=== PATIENT | female | born 1960 | race American Indian/Alaskan Native ===

== ENCOUNTER 2016-12-10 12:05 | Inpatient (IN) | payer SELFPAY ==
[2016-12-10 12:53] LABS: Basophils % (Auto) 1.1 % (0.0-1.8); Eosinophils % (Auto) 0.4 % (0.0-4.3); Mean Corpuscular HGB Conc 33 % (30-34); Mean Corpuscular Hemoglobin 27 pg (28-32); Mean Corpuscular Volume 84 fl (79-97); Platelet Count 267 K/mm3 (140-440); Red Blood Count 4.41 M/mm3 (3.65-5.03); Red Cell Distribution Width 14.9 % (13.2-15.2); White Blood Count 5.4 K/mm3 (4.5-11.0)
[2016-12-10 13:11] LABS: Anion Gap 19 mmol/L; Blood Urea Nitrogen 18 mg/dL (7-17); Calcium 9.2 mg/dL (8.4-10.2); Carbon Dioxide 20 mmol/L (22-30); Chloride 103.2 mmol/L (98-107); Glucose 97 mg/dL (65-100); Potassium 4.1 mmol/L (3.6-5.0); Sodium 138 mmol/L (137-145)
[2016-12-10] MEDS ORDERED: NITRO-BID 2% TP ONE (16:28)
[2016-12-10] MEDS ORDERED: ZOFRAN IV ONE (16:28)
[2016-12-10] MEDS ORDERED: MORPHINE IV ONE (16:28)
--- NOTE | 2016-12-10 16:44 | Emergency Department Report ---
HPI - General Chief Complaint: Chest Pain Time Seen by Provider: 12/10/16 16:21 - HPI HPI: Room 25 The patient is a 56-year-old female presenting with a chief complaint of chest pain. Patient states for the past 2 days she has had pain across her back radiating to her chest described as a pressure. The patient states he feels "like someone is sitting on my chest." Patient denies shortness of breath, nausea/vomiting or diaphoresis. The patient currently gives her chest pressure a score of 3/10. Patient states her last stress test occurred approximately 5 years ago but she has never had a cardiac catheterization Location: Chest Duration: Intermittent 2 days Quality: "Like someone is sitting normal chest" Severity: 3/10 Modifying factors: [see above] Context: [see above] Mode of transportation: [not driving] ED Past Medical Hx - Past Medical History Hx Hypertension: Yes Additional medical history: Cerebral Aneurysm 2012 - Surgical History Past Surgical History?: No Additional Surgical History: Aneurysm repair, Hysterectomy, Carpal Tunnel repair - Family History Family history: no significant - Social History Smoking Status: Current Every Day Smoker (1/14 pack per day) Substance Use Type: None - Medications Home Medications: Home Medications Medication Instructions Recorded Confirmed Last Taken Type No Known Home Medications [No 08/05/16 08/05/16 Unknown History Reported Home Medications] ED Review of Systems ROS: Stated complaint: R SHOULDER ACROSS BACK/CHEST PAIN Other details as noted in HPI Comment: All other systems reviewed and negative Constitutional: denies: chills, fever Eyes: denies: eye pain, eye discharge, vision change ENT: denies: ear pain, throat pain Respiratory: denies: cough, shortness of breath, wheezing Cardiovascular: chest pain Endocrine: no symptoms reported Gastrointestinal: denies: abdominal pain, nausea, diarrhea Genitourinary: denies: urgency, dysuria, discharge Musculoskeletal: back pain. denies: joint swelling, arthralgia Skin: denies: rash, lesions Neurological: denies: headache, weakness, paresthesias Psychiatric: denies: anxiety, depression Hematological/Lymphatic: denies: easy bleeding, easy bruising Physical Exam - Physical Exam Vital Signs: Vital Signs 12/10/16 12/10/16 12/10/16 12:22 15:11 15:12 Temperature 98.6 F Pulse Rate 68 71 Respiratory 18 20 Rate Blood Pressure 142/89 140/70 O2 Sat by Pulse 100 90 92 Oximetry 12/10/16 12/10/16 12/10/16 15:13 15:14 15:22 Temperature Pulse Rate 61 60 Respiratory 15 15 15 Rate Blood Pressure 140/70 140/70 O2 Sat by Pulse 93 99 99 Oximetry Physical Exam: GENERAL: The patient is well-developed well-nourished female lying on stretcher appearing to be in mild discomfort. [] HEENT: Normocephalic. Atraumatic. Extraocular motions are intact. Patient has moist mucous membranes. NECK: Supple. Trachea midline CHEST/LUNGS: Clear to auscultation. There is no respiratory distress noted. HEART/CARDIOVASCULAR: Regular. There is no tachycardia. There is no gallop rub or murmur. ABDOMEN: Abdomen is soft, nontender. Patient has normal bowel sounds. There is no abdominal distention. SKIN: There is no rash. There is no edema. There is no diaphoresis. NEURO: The patient is awake, alert, and oriented. The patient is cooperative. The patient has normal speech MUSCULOSKELETAL: There is no evidence of acute injury. ED Course Vital Signs 12/10/16 12/10/16 12/10/16 12:22 15:11 15:12 Temperature 98.6 F Pulse Rate 68 71 Respiratory 18 20 Rate Blood Pressure 142/89 140/70 O2 Sat by Pulse 100 90 92 Oximetry 12/10/16 12/10/16 12/10/16 15:13 15:14 15:22 Temperature Pulse Rate 61 60 Respiratory 15 15 15 Rate Blood Pressure 140/70 140/70 O2 Sat by Pulse 93 99 99 Oximetry ED Medical Decision Making - Lab Data Result diagrams: 12/10/16 12:35 12/10/16 12:35 Laboratory Tests 12/10/16 12/10/16 12/10/16 12:35 12:35 14:50 WBC 5.4 RBC 4.41 Hgb 12.0 Hct 37.0 MCV 84 MCH 27 L MCHC 33 RDW 14.9 Plt Count 267 Lymph % (Auto) 41.8 H [place] % (Auto) 10.4 H Eos % (Auto) 0.4 Baso % (Auto) 1.1 Lymph # 2.3 [place] # 0.6 Eos # 0.0 Baso # 0.1 Seg Neutrophils % 46.3 Seg Neutrophils # 2.5 Sodium 138 Potassium 4.1 Chloride 103.2 Carbon Dioxide 20 L Anion Gap 19 BUN 18 H Creatinine 0.9 Estimated GFR > 60 BUN/Creatinine Ratio 20.00 Glucose 97 Calcium 9.2 Troponin T < 0.010 < 0.010 - EKG Data -: EKG Interpreted by Me EKG shows normal: sinus rhythm Rate: normal - EKG Data When compared to previous EKG there are: previous EKG unavailable Interpretation: normal EKG - Radiology Data Radiology results: image reviewed (chest x-ray) interpreted by me: Chest x-ray- no focal infiltrates, no pneumothorax - Differential Diagnosis ACS, CHF, pneumothorax, pneumonia Critical care attestation.: If time is entered above; I have spent that time in minutes in the direct care of this critically ill patient, excluding procedure time. ED Disposition Clinical Impression: Chest pain Disposition: OP ADMITTED IP TO THIS HOSP Is pt being admited?: Yes Does the pt Need Aspirin: Yes Condition: Fair Instructions: Chest Pain (ED) Referrals: PRIMARY CARE, [Primary Care Provider] - 3-5 Days Time of Disposition: 16:46 (hospitalist notified)
[2016-12-10] MEDS ORDERED: ASPIRIN PO ONE (16:47)
--- NOTE | 2016-12-10 16:58 | Admit Criteria Form ---
Admission Criteria Documentation: CARDIOLOGY GRG Clinical Indications for Admission to Inpatient Care ( Place 'X' for any and all applicable criteria): Hospital admission is needed for appropriate care of the patient because of ANY ONE of the following (1): [ ] I. Hemodynamic instability as indicated by ALL of the following (1)(2)(3) (4)(5) [ ]a) Vital signs or other findings not as expected for chronic patient condition or baseline [ ]b) Instability indicated by ANY ONE of the following: [ ]i) Hypotension [ ]ii) Symptomatic Tachycardia unresponsive to treatment ( e.g., analgesia, fluids, sedation as indicated) [ ]iii) Inadequate perfusion indicated by ANY ONE of the following: [ ] 1) Lactic acidosis (> 2 mmol/L) [ ] 2) New abnormal capillary refill (> 3 seconds) [ ] 3) Reduced urine output [ ] 4) New altered mental status [ ]iv) Orthostatic vital sign changes unresponsive to treatment (e.g., fluids) [ ]v) IV inotropic or vasopressor medication required to maintain adequate blood pressure or perfusion [ ] II. Severe heart failure as indicated by ANY ONE of the following(17)(18) [ ]a) Respiratory distress [ ]b) Hypotension [ ]c) Anasarca (refractory to outpatient therapy) [ ]d) Cardiac arrhythmias of immediate concern [ ]e) Myocardial ischemia [ ] III. Cardiac arrhythmias or findings of immediate concern indicated by ANY ONE of the following (19)(20): [ ] a) Heart rhythms that are inherently dangerous or unstable indicated by ANY ONE of the following (21)(22)(23): [ ] i) Resuscitated ventricular fibrillation or cardiac arrest [ ] ii) Ventricular escape rhythm [ ] iii) Sustained ventricular tachycardia (30 seconds or more of ventricular rhythm at greater than 100 beats per minute) [ ] iv) Nonsustained ventricular tachycardia and ANY ONE of the following: [ ] 1) Suspected cardiac ischemia as cause or consequence of ventricular tachycardia [ ] 2) In setting of acute myocarditis [ ] b) Unstable cardiac conduction defects indicated by ANY ONE of the following(23)(24)(25) [ ] i) Type II second-degree atrioventricular block [ ]ii) Third-degree atrioventricular block [ ]iii) New-onset left bundle branch block with suspected myocardial ischemia [ ]c) Any heart rhythm and ANY ONE of the following (21)(22)(26)(27) (28) [ ] i) Continuous long-term ECG monitoring needed (e.g., initiation of drug requiring monitoring for more than 24 hours) [ ] ii) Patient has automatic implanted cardioverter defibrillator that is repeatedly firing, malfunctioning, or in need of immediate adjustment of settings beyond the scope of ambulatory or observation care [ ]d) Heart rhythms of concern due to ANY ONE of the following: [ ] i) Hypotension [ ] ii) Respiratory distress [ ] iii) Association with other significant symptoms (e.g., bradycardia with syncope or ongoing dizziness, supraventricular tachycardia with chest pain (14)(15)(17) [ ] IV. Monitoring for cardiac contusion beyond the scope of observation care needed [A](30)(31)(32) [ ] V. Surgical or device complication (e.g., valve replacement complication , pacemaker dysfunction) (35)(41)(44)(45)(46) [ ] . Inpatient palliative care needed. [B](49) Also use Inpatient Palliative Care Criteria [ ] VII. Nonbacterial thrombotic (marantic) endocarditis (36)(43)(47)(48) [X] VIII. Cardiology condition, symptom, or finding for which emergency and observation care has failed or are not considered appropriate. [ ] IX. Acute valvular disease requiring inpatient as indicated by ANY ONE of the following (41) [ ]a) Acute valvular regurgitation (42) [ ]b) Noninfectious valvulitis (43) [ ]c) Obstructive valve thrombosis [ ]d) Paravalvular leak [ ]e) Other significant valvular disorder remaining after emergency or observation level of care (as appropriate) [ ]X. Pericardial disease requiring inpatient treatment as indicated by ANY ONE of the following (33)(34)(35)(36)(37) [ ]a) Suspected tamponade (38)(39)(40) [ ]b) Hemopericardium [ ]c) Other significant pericardial disorder remaining after emergency or observation level of care (as appropriate) [ ] XI. Cardiac ischemia beyond scope of emergency and observation care. [ ] XII. Hypertension requiring inpatient treatment as indicated by ANY ONE of the following (6)(7)(8) [ ]a) SBP greater than 220 mm Hg or DBP greater than 120 mmHg despite treatment [ ]b) SBP greater than 140 mm Hg or DBP greater than 100 mm Hg with evidence of acute end organ damage as indicated by ANY ONE of the following [ ] i) Altered mental status [ ] ii) Acute renal failure as indicated by new onset of ANY ONE of the following (9)(10)(11)(12)(13) [ ]1) 3-fold rise in serum creatinine from baseline [ ]2) Serum creatinine greater than 4 mg/dL ( 354 micromoles/L) with acute rise greater than 0.5 mg/dL (44.2 micromoles/L) [ ]3) Reduction of more than 75% in estimated glomerular filtration rate from baseline [ ]4) Estimated glomerular filtration rate less than 35 mL/min/1.73m2 (0.59 mL/sec/1.73m2) in child up to 18 years of age [ ]5) Cessation of urine output indicated by ALL of the following [ ]A. Adequate volume status [ ]B. Inadequate urine output as indicated by ANY ONE of the following [ ]a. Urine output less than 0.3 mL/kg/hr for 24 hours [ ]b. Anuria (urine output less than 0.1 mL/kg/hr) for 12 hours [ ] iii) Aortic dissection [ ] iv) Myocardial Ischemia [ ] v) Left ventricular heart failure [ ]vi) Retinal Hemorrhage [ ]vii) Other significant finding [ ]c) Hypertension in child requiring inpatient treatment as indicated by ALL of the following(14)(15)(16) [ ] i) Outpatient treatment not effective, not available, or not appropriate [ ]ii) SBP or DBP greater than 95th percentile for age [ ]iii) Evidence of acute end organ damage as indicated by ANY ONE of the following [ ]1) Altered mental status [ ]2) Acute renal failure as indicated by new onset of ANY ONE of the following(9)(10)(11)(12)(13) [ ]A. 3-fold rise in serum creatinine from baseline [ ]B. Serum creatinine greater than 4 mg/dL (354 micromoles/L) with acute rise greater than 0.5 mg/dL (44.2 micromoles/L) [ ]C. Reduction of more than 75% in estimated glomerular filtration rate from baseline [ ]D. Estimated glomerular filtration rate less than 35 mL/min/1.73m2 (0.59 mL/sec/1.73m2) in child up to 18 years of age [ ]E. Cessation of urine output indicated by ALL of the following [ ]a. Adequate volume status [ ]b. Inadequate urine output as indicated by ANY ONE of the following [ ]i) Urine output less than 0.3 mL/kg/hr for 24 hours [ ]ii) Anuria ( urine output less than 0.1 mL/kg/hr) for 12 hours [ ]3) Severe headache [ ]4) Visual disturbance [ ]5) Retinal hemorrhage [ ]6) Other significant finding [ ]XIII. Complications of transplanted heart indicated by ANY ONE of the following(61): [ ]a) Acute graft rejection requiring inpatient management (eg, intravenous immunosuppression)(62)(63) [ ]b) Acute graft heart failure indicated by ANY ONE of the following(64): [ ]i) Hemodynamic instability [ ]ii) Cardiac arrhythmias of immediate concern [ ]iii) Pulmonary edema that is very severe (eg, mechanical ventilation needed, imminent or likely, need for 100% oxygen to keep oxygen saturation above 90%) [ ]iv) Pulmonary edema that is persistent as indicated by ALL of the following: [ ]1) New need for oxygen therapy to keep oxygen saturation above 90% (or increased FiO2 need from baseline) [ ]2) Has not improved sufficiently with emergency department or observation care IV diuretics or other heart failure treatments[E] [ ]v) Altered mental status that is severe or persistent [ ]vi) Increased creatinine (new on laboratory test) with reduction of more than 50% in estimated glomerular filtration rate from baseline [ ]vii) Progressively (ongoing) rising creatinine (known from past laboratory test) with reduction of more than 25% in estimated glomerular filtration rate from baseline [ ]viii) Acute renal failure [ ]ix) Acute peripheral ischemia (eg, examination shows pulseless, cool, mottled, or cyanotic extremity) [ ]x) Pulmonary artery catheter monitoring needed [ ]xi) Other sign or symptom of heart failure requiring inpatient treatment (ie, too severe or not responsive to outpatient and observation care treatment) [ ]c) Infection requiring inpatient management (eg, Hemodynamic instability, need for intravenous antimicrobial treatment)(66)(67)(68)(69)(70) [ ]d) Cardiac allograft vasculopathy requiring inpatient management ( eg evidence of cardiac ischemia)(71) [ ]e) Other complication of transplanted heart (eg, stroke, severe pulmonary hypertension, severe valvular dysfunction) requiring inpatient management(72) The original [facility] [employer] content created by [facility] has been revised. The portions of the content which have been revised are identified through the use of italic text or in bold, and [facility] has neither reviewed nor approved the modified material. All other unmodified content is copyright [facility] [employer]. Please see references footnoted in the original [facility] [employer] edition 2016 Admission Criteria Met: Yes
--- NOTE | 2016-12-11 04:00 | Event Note ---
Date: 12/10/16 See H/p in reports Chest pain-r/o IL
[2016-12-11] MEDS ORDERED: SODIUM CHLORIDE FLUSH SYRINGE 10 ML IV PRN (04:10)
[2016-12-11] MEDS: PERCOCET 5/325 PO PRN ×2 (04:39→08:26)
--- NOTE | 2016-12-11 06:20 | History and Physical Report ---
CHIEF COMPLAINT: Left-sided chest pain. HISTORY OF PRESENT ILLNESS: A 56-year-old female with history of hypertension comes in for left-sided chest pain. The patient has right shoulder pain, which has been radiating to the back and back to the left chest. Chest pain is new. It is more of chest tightness and scale of 3 on a scale of 1-10. No vomiting, no nausea, no diaphoresis. No palpitations. No exacerbating or relieving factors. BARB score is zero. PAST MEDICAL HISTORY: Significant for hypertension, on 2012. PAST SURGICAL HISTORY: Aneurysm clip, hysterectomy and carpal tunnel surgery. FAMILY HISTORY: No significant family history. SOCIAL HISTORY: She smokes about one-fourth pack a day. No history of illicit drugs abuse. CURRENT MEDICATIONS: None. REVIEW OF SYSTEMS: Significant for right shoulder pain radiating to the back and chest. Otherwise, review of systems is essentially negative. A 14-point review of systems is done. PHYSICAL EXAMINATION: GENERAL: A middle-aged female, cooperative during examination. VITAL SIGNS: Temperature 98.6, pulse is 68, respirations are 18, and blood pressure 142/89. HEENT: Unremarkable. Pupils are equal and reactive. NECK: Supple, no lymphadenopathy, no thyromegaly. LUNGS: Clear to auscultation and percussion. Good air entry. CARDIOVASCULAR: S1, S2 heard. No gallop, no murmur, no rub. Apical impulse in left fifth intercostal space and midclavicular line. ABDOMEN: Soft and benign. No hepatosplenomegaly. No guarding, no rigidity. Hernial orifices are normal. SKIN: No rash. CENTRAL NERVOUS SYSTEM: No syncope, no seizures. MUSCULOSKELETAL: No joints pain. No muscle pain. LABORATORY DATA: Significant for white count of 5,400; hemoglobin of 12, hematocrit of 37, and platelet count of 267,000. Sodium is 138, potassium is 4.1, chloride is 103, bicarbonate is 20, BUN and creatinine are 18 and 0.9, glucose is 97. EKG shows normal sinus rhythm. IMAGING STUDIES: Chest x-ray shows no focal infiltrates, no pneumothorax. ASSESSMENT AND PLAN: 1. Acute coronary syndrome with serial cardiac enzymes and Lexiscan. The patient will be discharged if the Lexiscan is negative. 2. Nicotine dependence. The patient is counseled. 3. Deep venous thrombosis prophylaxis, Lovenox 40 mg subcutaneous. [facility]# [id number] RONNA/SANDRA
[2016-12-11] MEDS ORDERED: LEXISCAN IV ONE ×2 (08:06→08:25)
[2016-12-11 08:30] LABS: Creatine Kinase MB < 1.0 ng/mL (0.0-4.0)
[2016-12-11 08:32] LABS: Creatine Kinase 64 units/L (30-135)
--- NOTE | 2016-12-11 10:04 | XRay Report ---
AP CHEST: HISTORY: chest pain AP view of the chest demonstrates a normal mediastinal and cardiac contour with clear lungs and normal bony and soft tissue structures. IMPRESSION: Unremarkable AP chest.
--- NOTE | 2016-12-11 15:17 | Treadmill Report ---
NUCLEAR STRESS TEST REPORT DESCRIPTION OF PROCEDURE: The patient is brought to the Cardiology lab and a Lexiscan stress test is performed. She tolerated the procedure well. Post-stress images revealed homogeneous distribution of the isotope with no significant reversibility during rest. Accompanying gated study shows good systolic function with a calculated ejection fraction of 61%. IMPRESSION: 1. Dual isotope study is negative for significant reversible defects to indicate ischemia. 2. Accompanying gated study shows good systolic function with an ejection fraction of 61%. 3. Suggest clinic correlation. JOB# [id number] KB/NTS
--- NOTE | 2016-12-11 15:44 | Discharge Summary ---
Providers - Providers Date of Admission: 12/10/16 16:38 Date of discharge: 12/11/16 Attending physician: JAEL LIU 12/11/16 Consult to Cardiac Rehabilitation [CONS] Routine Reason For Exam: Phase I Primary care physician: [facility] Hospitalization Reason for admission: chest pain Condition: Stable Pertinent studies: CXR MPI Disposition: DISCHARGED TO HOME OR SELFCARE Time spent for discharge: 35 min Core Measure Documentation - Palliative Care Palliative Care/ Comfort Measures: Not Applicable - Core Measures Any of the following diagnoses?: none Exam - Constitutional Vitals: Temp Pulse Resp BP Pulse Ox 98.0 F 60 20 147/83 99 12/11/16 07:45 12/11/16 10:00 12/11/16 10:00 12/11/16 09:53 12/11/16 10:00 Plan Activity: advance as tolerated Diet: low cholesterol, low salt Follow up with: PRIMARY CARE, [Primary Care Provider] - 3-5 Days Prescriptions: Famotidine [Pepcid] 20 mg PO BID #60 tablet
[2016-12-11 16:16] VITALS: BP 125/63
== END 2016-12-11 17:59 | disposition home or self-care (01) | DRG 311 ==
LOC: ED 12:05 → 4A 16:38
PROVIDERS: ADMIT Internal Medicine; ATTEND Internal Medicine
DX: I24.9 Acute ischemic heart disease, unspecified (principal); F17.200 Nicotine dependence, unspecified, uncomplicated; Z90.710 Acquired absence of both cervix and uterus; Z71.6 Tobacco abuse counseling
CPT/HCPCS: 36415; 71010; 78452; 80048; 82550; 82553; 84484; 85025; 93005; 93010; 93017; 96374; 96375; A9502; J2270; J2405; J2785

== ENCOUNTER 2018-03-20 13:25 | Emergency (ER) | payer SELFPAY ==
[2018-03-20] MEDS ORDERED: NORCO 5/325 PO ONE (15:28)
[2018-03-20] MEDS ORDERED: MOTRIN PO ONE (15:28)
--- NOTE | 2018-03-20 15:43 | Emergency Department Report ---
ED Extremity Problem HPI - General Chief complaint: Back Pain/Injury Stated complaint: SHOULDER AND BACK PAIN Time Seen by Provider: 03/20/18 15:26 Source: patient Mode of arrival: Ambulatory Limitations: No Limitations - History of Present Illness Initial comments: 57-year-old female past medical history history of cerebral aneurysm in 2013, hypertension, hysterectomy presents with complaint of acute on chronic right shoulder pain and mid back pain. Patient denies any associated paresthesias fevers chills shortness of breath or substernal chest pain. Patient states the pain is specifically worse when she rotates her right shoulder. Patient denies any recent trauma. Is awake alert and oriented 3. States pain is currently a 6 out of 10. MD Complaint: extremity pain - Related Data Previous Rx's Medication Instructions Recorded Last Taken Type Famotidine [Pepcid] 20 mg PO BID #60 tablet 12/11/16 Unknown Rx Cyclobenzaprine [Flexeril] 10 mg PO TID PRN #15 tablet 03/20/18 Unknown Rx Ibuprofen [Motrin] 800 mg PO Q8HR PRN #20 tablet 03/20/18 Unknown Rx amLODIPine [Norvasc] 5 mg PO DAILY #30 tab 03/20/18 Unknown Rx Allergies Allergy/AdvReac Type Severity Reaction Status Date / Time No Known Allergies Allergy Unverified 08/05/16 09:16 ED Review of Systems ROS: Stated complaint: SHOULDER AND BACK PAIN Other details as noted in HPI Constitutional: denies: chills, fever Eyes: denies: eye pain, eye discharge, vision change ENT: denies: ear pain, throat pain Respiratory: denies: cough, shortness of breath, wheezing Cardiovascular: denies: chest pain, palpitations Endocrine: no symptoms reported Gastrointestinal: denies: abdominal pain, nausea, diarrhea Genitourinary: denies: urgency, dysuria, discharge Musculoskeletal: as per HPI, back pain (chronic back pain), arthralgia (chronic right shoulder pain). denies: joint swelling Skin: denies: rash, lesions Neurological: denies: headache, weakness, paresthesias Psychiatric: denies: anxiety, depression Hematological/Lymphatic: denies: easy bleeding, easy bruising ED Past Medical Hx - Past Medical History Hx Hypertension: Yes Hx Congestive Heart Failure: No Hx Diabetes: No Hx Arthritis: Yes Hx Asthma: No Hx COPD: No Additional medical history: Cerebral Aneurysm 2012 - Surgical History Additional Surgical History: Aneurysm repair, Hysterectomy, Carpal Tunnel repair - Social History Smoking Status: Never Smoker Substance Use Type: None - Medications Home Medications: Home Medications Medication Instructions Recorded Confirmed Last Taken Type Famotidine [Pepcid] 20 mg PO BID #60 tablet 12/11/16 Unknown Rx Cyclobenzaprine [Flexeril] 10 mg PO TID PRN #15 tablet 03/20/18 Unknown Rx Ibuprofen [Motrin] 800 mg PO Q8HR PRN #20 tablet 03/20/18 Unknown Rx amLODIPine [Norvasc] 5 mg PO DAILY #30 tab 03/20/18 Unknown Rx ED Physical Exam - General Limitations: No Limitations General appearance: alert, in no apparent distress - Head Head exam: Present: atraumatic, normocephalic - Eye Eye exam: Present: normal appearance, PERRL, EOMI - ENT ENT exam: Present: mucous membranes moist - Neck Neck exam: Present: normal inspection - Respiratory Respiratory exam: Present: normal lung sounds bilaterally. Absent: respiratory distress - Cardiovascular Cardiovascular Exam: Present: regular rate, normal rhythm. Absent: systolic murmur, diastolic murmur, rubs, gallop - GI/Abdominal GI/Abdominal exam: Present: soft, normal bowel sounds - Extremities Exam Extremities exam: Present: normal inspection - Expanded Upper Extremity Exam Right Shoulder Exam: Present: normal inspection, full ROM (range of motion right shoulder clinically intact no overlying cellulitis) Upper Arm exam: Present: normal inspection, full ROM Elbow exam: Present: normal inspection, full ROM Forearm Wrist exam: Present: normal inspection, full ROM Hand Wrist exam: Present: normal inspection, full ROM Neuro motor exam: Present: wrist extension intact, thumb opposition intact, thumb IP flexion intact, thumb adduction intact, fingers 2-5 abduction intact Neurosensory exam: Present: radial nerve intact, ulnar nerve intact, median nerve intact Vascular: Present: radial pulse, brachial pulse, ulnar pulse - Back Exam Back exam: Present: normal inspection - Neurological Exam Neurological exam: Present: alert, oriented X3, CN II-XII intact, normal gait - Psychiatric Psychiatric exam: Present: normal affect, normal mood - Skin Skin exam: Present: warm, dry, intact, normal color. Absent: rash ED Course Vital Signs 03/20/18 14:38 Temperature 98.6 F Pulse Rate 72 Respiratory 20 Rate Blood Pressure 172/97 O2 Sat by Pulse 99 Oximetry ED Medical Decision Making - Medical Decision Making A/P: Acute on chronic right shoulder and mid back pain, hypertension 1-patient has had symptoms for many years 2-Motrin when necessary, Flexeril when necessary 3-follow-up with primary care. As patient states she has had ongoing right shoulder pain for several years refer her to orthopedics and pain management. 4- patient is asymptomatic no chest pain palpitations shortness of breath pleuritic chest pain paresthesias headache blurry vision. Critical care attestation.: If time is entered above; I have spent that time in minutes in the direct care of this critically ill patient, excluding procedure time. ED Disposition Clinical Impression: Musculoskeletal back pain, Chronic right shoulder pain Hypertension Qualifiers: Hypertension type: unspecified Qualified Code(s): I10 - Essential (primary) hypertension Disposition: TO HOME OR SELFCARE Is pt being admited?: No Does the pt Need Aspirin: No Condition: Stable Instructions: Hypertension (ED), Musculoskeletal Pain (ED) Prescriptions: amLODIPine [Norvasc] 5 mg PO DAILY #30 tab Cyclobenzaprine [Flexeril] 10 mg PO TID PRN #15 tablet PRN Reason: Muscle Spasm Ibuprofen [Motrin] 800 mg PO Q8HR PRN #20 tablet PRN Reason: Pain Referrals: [facility] [Provider Group] - 3-5 Days [facility] [Outside] - 3-5 Days KETURAH SANCHEZ MD [Staff Physician] - 3-5 Days Time of Disposition: 17:20
--- NOTE | 2018-03-20 17:18 | XRay Report ---
FINAL REPORT EXAM: XR SPINE THORACIC 2V HISTORY: midback pain TECHNIQUE: Two views thoracic spine PRIORS: None. FINDINGS: The vertebral bodies demonstrate normal height and alignment. The disk spaces are within normal limits. The posterior elements appear intact. Perivertebral soft tissues are unremarkable. IMPRESSION: Negative thoracic spine series
--- NOTE | 2018-03-20 17:20 | XRay Report ---
FINAL REPORT EXAM: XR SHOULDER 2+V RT HISTORY: right shoulder pain chronic TECHNIQUE: Three views right shoulder PRIORS: None. FINDINGS: No fractures are identified. No dislocation seen. The acromioclavicular joint is intact. Adjacent bony and soft tissue structures are unremarkable. IMPRESSION: Negative shoulder series
[2018-03-20 17:41] VITALS: BP 180/100
== END 2018-03-20 17:39 | disposition home or self-care (01) ==
LOC: ED 13:25
DX: M54.89 Other dorsalgia (principal); M25.511 Pain in right shoulder; G89.29 Other chronic pain; F45.42 Pain disorder with related psychological factors; I10 Essential (primary) hypertension; M19.90 Unspecified osteoarthritis, unspecified site; I67.1 Cerebral aneurysm, nonruptured; Z90.710 Acquired absence of both cervix and uterus; Z79.899 Other long term (current) drug therapy
CPT/HCPCS: 72070; 99283